=== PATIENT | female | born 1950 | race Caucasian/White ===

== ENCOUNTER 2017-05-13 17:21 | Inpatient (IN) | payer OTHER ==
[~2017-05-13] VITALS: Ht 157.5 cm; Wt 50.8 kg
[~2017-05-13 17:21] MED LIST: ALBU3IS INH; ALBU90OI INH; ALBU90OI61 INH; ALPR.5; ALPR.5 PO; ALPR1 PO; AMOCLA875 PO; ARIP10 PO; ASCO500 PO; ASPI325 PO; AZIT500 PO; Abilify2 MG PO; BUDE6HFA INH; BUSP10 PO; CALCA500CH PO; CEPH500 PO; CITA20 PO; CYCL10 PO; Calcium 500 MG1 EACH PO; Cefpodoxime Pr200 MG PO; DELTASONE20 MG PO; DOXY100 PO; Duoneb 2.5-0.5 M3 ML IH; ERGO400 PO; ESCI5; FAMO20 PO; FLUSAL2505 INH; GUAI600T33 PO; HYDR1TAB94 PO; LIDO5TP TOP; LORA1 PO; MECL25 PO; MONT10T PO; Mucinex600 MG PO; NICO14TP TOP; NICO21TP TOP; NYST100P TOP; Nicoderm Cq1 EAC1 TD; Norco 5-325 Ta1 EACH PO; OMEP20ER PO; OMEPRAZOLE MAGN20 MG PO; PRED10 PO; PRED20 PO; PROACE100; PROACE100 PO; Prednisone20 MG PO; Prednisone50 MG PO; QUET100 PO; ROBITUSSIN100 MG/5 M PO; RXHYDACE PO; RXPROACE PO; SERT100 PO; TOLT4 PO; TRAM50 PO; TRAZ100 PO; TRAZ150T57 PO; Ultram50 MG PO; Ventolin/Prove6.7 GM INH; Verotin-Gr Cap1 EACH PO; Zithromax250 MG PO
[2017-05-13 18:03] LABS: BASOPHILS ABSOLUTE AUTO 0.02 K/mm3 (0.00-0.23); BASOPHILS PERCENT AUTO 0 % (0-2); Hematocrit 33.5 % (33.0-51.0); LYMPHOCYTES ABSOLUTE AUTO 0.97 K/mm3 (0.84-5.20); LYMPHOCYTES PERCENT AUTO 8 % (21-46); MONOCYTES ABSOLUTE AUTO 0.64 K/mm3 (0.16-1.47); MONOCYTES PERCENT AUTO 5 % (4-13); Mean Corpuscular HGB 27.8 pg (26.0-34.0); Mean Corpuscular HGB Conc 32.8 g/dL (31.5-36.5); Mean Corpuscular Volume 85 fL (80-100); RDW Coefficient Variation 14.6 % (11.7-14.2); Red Blood Cell Count 3.95 M/mm3 (3.80-5.20); White Blood Cell Count 12.49 K/mm3 (4.00-11.30)
[2017-05-13 18:08] LABS: EOSINOPHILS ABSOLUTE AUTO 0.01 K/mm3 (0.00-0.68); EOSINOPHILS PERCENT AUTO 0 % (0-6); IMMATURE GRAN ABSOLUTE AUTO 0.07 K/mm3 (0.00-0.10); IMMATURE GRAN PERCENT AUTO 1 % (0-1); Mean Platelet Volume 9.2 fL (9.1-12.4); NEUTROPHILS ABSOLUTE AUTO 10.78 K/mm3 (1.96-9.15); NEUTROPHILS PERCENT AUTO 86 % (41-73); Platelet Count 230 K/mm3 (150-400)
[2017-05-13 18:37] LABS: Alanine Aminotransfer (ALT/SGP 15 U/L (12-78); Albumin, Blood 3.3 g/dL (3.4-5.0); Albumin/Globulin Ratio 1.2 (0.8-1.8); Alk Phos 70 U/L (50-136); Anion Gap 9 mmol/L (6-16); Aspartate Aminotrans (AST/SGOT 23 U/L (12-37); Bilirubin, Total 0.6 mg/dL (0.1-1.0); Blood Urea Nitrogen 17 mg/dL (8-24); Bun/Creatinine Ratio 26.5 (12.0-20.0); CO2, Blood 24 mmol/L (21-32); Calcium, Blood 8.1 mg/dL (8.5-10.1); Chloride, Blood 102 mmol/L (98-108); Creatinine, Blood 0.64 mg/dL (0.40-1.00); Globulin, Blood 2.8 g/dL (2.2-4.0); Glomerular Filtration Rate >60 (60-); Glucose, Blood 113 mg/dL (70-99); Potassium, Blood 3.8 mmol/L (3.5-5.5); Sodium, Blood 135 mmol/L (136-145); Total Protein, Blood 6.1 g/dL (6.4-8.2); Troponin I <0.015 ng/mL (0.000-0.040)
[2017-05-13 18:42] LABS: PCO2 Arterial 36.6 mmHg (35-45); PO2 Arterial 60.6 mmHg (80-100); pH Blood Arterial 7.43 (7.35-7.45)
[2017-05-14 01:02] LABS: Influenza A Negative (NEGATIVE); Influenza B Negative (NEGATIVE)
[2017-05-14 04:53] LABS: Hemoglobin 10.1 g/dL (11.5-16.0); Mean Corpuscular HGB 27.7 pg (26.0-34.0); Mean Corpuscular HGB Conc 32.6 g/dL (31.5-36.5); Mean Corpuscular Volume 85 fL (80-100); Mean Platelet Volume 9.3 fL (9.1-12.4); Platelet Count 261 K/mm3 (150-400); RDW Coefficient Variation 14.9 % (11.7-14.2); RDW Standard Deviation 45.7 fL (35.1-46.3); Red Blood Cell Count 3.65 M/mm3 (3.80-5.20); White Blood Cell Count 11.41 K/mm3 (4.00-11.30)
[2017-05-14 05:15] LABS: Alanine Aminotransfer (ALT/SGP 14 U/L (12-78); Albumin/Globulin Ratio 0.9 (0.8-1.8); Alk Phos 61 U/L (50-136); Anion Gap 10 mmol/L (6-16); Aspartate Aminotrans (AST/SGOT 17 U/L (12-37); Bilirubin, Total 0.5 mg/dL (0.1-1.0); Blood Urea Nitrogen 20 mg/dL (8-24); Bun/Creatinine Ratio 31.4 (12.0-20.0); CO2, Blood 23 mmol/L (21-32); Calcium, Blood 8.5 mg/dL (8.5-10.1); Chloride, Blood 105 mmol/L (98-108); Creatinine, Blood 0.64 mg/dL (0.40-1.00); Globulin, Blood 3.3 g/dL (2.2-4.0); Glomerular Filtration Rate >60 (60-); Glucose, Blood 143 mg/dL (70-99); Potassium, Blood 3.6 mmol/L (3.5-5.5); Sodium, Blood 138 mmol/L (136-145); Total Protein, Blood 6.3 g/dL (6.4-8.2)
[2017-05-14 05:23] LABS: BAND PERCENT MAN 26 % (0-8); BASOPHILS PERCENT MAN 0 % (0-2); EOSINOPHILS PERCENT MAN 0 % (0-6); LYMPHOCYTES ABSOLUTE MAN 0.22 K/mm3 (0.84-5.20); LYMPHOCYTES PERCENT MAN 2 % (21-46); MONOCYTES PERCENT MAN 0 % (4-13); NEUTROPHILS ABSOLUTE MAN 11.18 K/mm3 (1.96-9.15); SEG NEUTROPHILS PERCENT MAN 72 % (41-73); TOTAL CELLS COUNTED 100
[2017-05-14 17:41] LABS: Anion Gap 10 mmol/L (6-16); Blood Urea Nitrogen 20 mg/dL (8-24); Bun/Creatinine Ratio 30.3 (12.0-20.0); CO2, Blood 22 mmol/L (21-32); Calcium, Blood 8.6 mg/dL (8.5-10.1); Chloride, Blood 101 mmol/L (98-108); Creatinine, Blood 0.66 mg/dL (0.40-1.00); Glomerular Filtration Rate >60 (60-); Glucose, Blood 204 mg/dL (70-99); Sodium, Blood 133 mmol/L (136-145)
[2017-05-15 05:30] LABS: Hematocrit 29.6 % (33.0-51.0); Hemoglobin 9.7 g/dL (11.5-16.0); Mean Corpuscular HGB Conc 32.8 g/dL (31.5-36.5); Mean Corpuscular Volume 86 fL (80-100); Mean Platelet Volume 9.4 fL (9.1-12.4); Platelet Count 267 K/mm3 (150-400); RDW Coefficient Variation 15.3 % (11.7-14.2); RDW Standard Deviation 47.4 fL (35.1-46.3); Red Blood Cell Count 3.46 M/mm3 (3.80-5.20); White Blood Cell Count 11.22 K/mm3 (4.00-11.30)
[2017-05-15 06:02] LABS: BAND PERCENT MAN 8 % (0-8); BASOPHILS PERCENT MAN 0 % (0-2); EOSINOPHILS PERCENT MAN 0 % (0-6); LYMPHOCYTES ABSOLUTE MAN 0.44 K/mm3 (0.84-5.20); LYMPHOCYTES PERCENT MAN 4 % (21-46); MONOCYTES ABSOLUTE MAN 0.22 K/mm3 (0.16-1.47); MONOCYTES PERCENT MAN 2 % (4-13); NEUTROPHILS ABSOLUTE MAN 10.54 K/mm3 (1.96-9.15); SEG NEUTROPHILS PERCENT MAN 86 % (41-73); TOTAL CELLS COUNTED 100
[2017-05-15 17:08] LABS: Anion Gap 10 mmol/L (6-16); Blood Urea Nitrogen 19 mg/dL (8-24); CO2, Blood 22 mmol/L (21-32); Calcium, Blood 8.7 mg/dL (8.5-10.1); Chloride, Blood 102 mmol/L (98-108); Creatinine, Blood 0.51 mg/dL (0.40-1.00); Glomerular Filtration Rate >60 (60-); Glucose, Blood 107 mg/dL (70-99); Potassium, Blood 4.2 mmol/L (3.5-5.5); Sodium, Blood 134 mmol/L (136-145)
[2017-05-16 05:30] LABS: BASOPHILS ABSOLUTE AUTO 0.01 K/mm3 (0.00-0.23); BASOPHILS PERCENT AUTO 0 % (0-2); EOSINOPHILS PERCENT AUTO 0 % (0-6); Hematocrit 32.3 % (33.0-51.0); Hemoglobin 10.4 g/dL (11.5-16.0); IMMATURE GRAN ABSOLUTE AUTO 0.14 K/mm3 (0.00-0.10); IMMATURE GRAN PERCENT AUTO 1 % (0-1); LYMPHOCYTES ABSOLUTE AUTO 0.64 K/mm3 (0.84-5.20); LYMPHOCYTES PERCENT AUTO 6 % (21-46); MONOCYTES ABSOLUTE AUTO 0.16 K/mm3 (0.16-1.47); MONOCYTES PERCENT AUTO 2 % (4-13); Mean Corpuscular HGB 28.1 pg (26.0-34.0); Mean Corpuscular HGB Conc 32.2 g/dL (31.5-36.5); Mean Corpuscular Volume 87 fL (80-100); Mean Platelet Volume 9.2 fL (9.1-12.4); NEUTROPHILS PERCENT AUTO 91 % (41-73); Platelet Count 299 K/mm3 (150-400); RDW Coefficient Variation 15.6 % (11.7-14.2); RDW Standard Deviation 49.1 fL (35.1-46.3); White Blood Cell Count 9.95 K/mm3 (4.00-11.30)
[2017-05-16 05:55] LABS: Anion Gap 7 mmol/L (6-16); Blood Urea Nitrogen 18 mg/dL (8-24); Bun/Creatinine Ratio 30.2 (12.0-20.0); CO2, Blood 25 mmol/L (21-32); Calcium, Blood 8.6 mg/dL (8.5-10.1); Chloride, Blood 106 mmol/L (98-108); Glomerular Filtration Rate >60 (60-); Glucose, Blood 128 mg/dL (70-99); Potassium, Blood 4.2 mmol/L (3.5-5.5); Sodium, Blood 138 mmol/L (136-145)
[2017-05-16] MEDS ORDERED: CEPH500 PO (12:54)
[2017-05-16] MEDS ORDERED: [UNRECOGNIZED DRUG - OTHER] (12:58)
[2017-05-16] MEDS ORDERED: ALPR.5 (13:00)
[2017-05-16] MEDS ORDERED: ACET325 (13:05)
[2017-05-16] MEDS ORDERED: MUCINEX FAST-M180 M3 PO (13:11)
[2017-05-16] MEDS ORDERED: DOCU100 PO (13:14)
[2017-05-16] MEDS ORDERED: Bisac-Evac10 MG (13:14)
[2017-05-16] MEDS ORDERED: LEVO750 PO (13:17)
[2017-05-16] MEDS ORDERED: Norco 5-325 Ta1 EACH (13:20)
[2017-05-16] MEDS ORDERED: PRED20 (13:23)
[2017-05-27] MEDS ORDERED: PRED20 PO (11:23)
[2017-08-19] MEDS ORDERED: Percocet 5-3251 EACH PO (20:39)
[2017-08-19] MEDS ORDERED: LEVO750 PO (20:39)
[2017-11-08] MEDS ORDERED: Prednisone20 MG PO (16:46)
[2017-11-08] MEDS ORDERED: Zithromax250 MG PO (16:46)
[2017-11-08] MEDS ORDERED: KETO10 PO (16:46)
== END 2017-05-16 14:36 | disposition home or self-care (01) | DRG 189 ==
LOC: ER 17:21 → MEDS 19:41
PROVIDERS: Emergency Medicine; Family Medicine; Internal Medicine
DX: J96.21 Acute and chronic respiratory failure with hypoxia (principal); J18.9 Pneumonia, unspecified organism; E87.1 Hypo-osmolality and hyponatremia; J44.0 Chronic obstructive pulmonary disease with (acute) lower respiratory infection; J44.1 Chronic obstructive pulmonary disease with (acute) exacerbation; F41.1 Generalized anxiety disorder; E87.6 Hypokalemia; F17.210 Nicotine dependence, cigarettes, uncomplicated; Z88.5 Allergy status to narcotic agent
CPT/HCPCS: 36415; 36600; 71045; 71046; 80048; 80053; 82803; 83605; 84484; 85025; 87040; 87804; 93005; 93010; 94640; 94644; 94667; 94760; 96365; 96375; 99285; J0696; J1650; J1885; J1956; J2543; J2930; J3010

== ENCOUNTER 2017-05-23 19:53 | Inpatient (IN) | payer OTHER ==
[~2017-05-23] VITALS: Ht 167.6 cm; Wt 50.1 kg
[~2017-05-23 19:53] MED LIST changes: +ACET325; +Bisac-Evac10 MG; +DOCU100 PO; +LEVO750 PO; +MUCINEX FAST-M180 M3 PO; +Norco 5-325 Ta1 EACH; +PRED20; +[UNRECOGNIZED DRUG - OTHER]
[2017-05-23 20:20] LABS: BASOPHILS ABSOLUTE AUTO 0.02 K/mm3 (0.00-0.23); BASOPHILS PERCENT AUTO 0 % (0-2); EOSINOPHILS PERCENT AUTO 3 % (0-6); Hematocrit 32.4 % (33.0-51.0); Hemoglobin 10.1 g/dL (11.5-16.0); IMMATURE GRAN ABSOLUTE AUTO 0.11 K/mm3 (0.00-0.10); IMMATURE GRAN PERCENT AUTO 2 % (0-1); LYMPHOCYTES ABSOLUTE AUTO 1.95 K/mm3 (0.84-5.20); LYMPHOCYTES PERCENT AUTO 28 % (21-46); MONOCYTES ABSOLUTE AUTO 0.64 K/mm3 (0.16-1.47); MONOCYTES PERCENT AUTO 9 % (4-13); Mean Corpuscular HGB 27.3 pg (26.0-34.0); Mean Corpuscular HGB Conc 31.2 g/dL (31.5-36.5); Mean Corpuscular Volume 88 fL (80-100); Mean Platelet Volume 8.8 fL (9.1-12.4); NEUTROPHILS ABSOLUTE AUTO 4.18 K/mm3 (1.96-9.15); NEUTROPHILS PERCENT AUTO 59 % (41-73); Platelet Count 318 K/mm3 (150-400); RDW Coefficient Variation 15.2 % (11.7-14.2); RDW Standard Deviation 49.1 fL (35.1-46.3)
[2017-05-23 20:38] LABS: Alanine Aminotransfer (ALT/SGP 15 U/L (12-78); Albumin, Blood 2.7 g/dL (3.4-5.0); Albumin/Globulin Ratio 0.9 (0.8-1.8); Alk Phos 76 U/L (50-136); Anion Gap 6 mmol/L (6-16); Aspartate Aminotrans (AST/SGOT 15 U/L (12-37); Bilirubin, Total 0.1 mg/dL (0.1-1.0); Blood Urea Nitrogen 16 mg/dL (8-24); Bun/Creatinine Ratio 21.9 (12.0-20.0); CO2, Blood 31 mmol/L (21-32); Chloride, Blood 105 mmol/L (98-108); Creatinine, Blood 0.73 mg/dL (0.40-1.00); Globulin, Blood 2.9 g/dL (2.2-4.0); Glomerular Filtration Rate >60 (60-); Glucose, Blood 113 mg/dL (70-99); Potassium, Blood 3.7 mmol/L (3.5-5.5); Sodium, Blood 142 mmol/L (136-145); Total Protein, Blood 5.6 g/dL (6.4-8.2); Troponin I <0.015 ng/mL (0.000-0.040)
[2017-05-25 05:04] LABS: Hematocrit 33.2 % (33.0-51.0); Hemoglobin 10.4 g/dL (11.5-16.0); Mean Corpuscular HGB 27.3 pg (26.0-34.0); Mean Corpuscular HGB Conc 31.3 g/dL (31.5-36.5); Mean Corpuscular Volume 87 fL (80-100); Mean Platelet Volume 8.6 fL (9.1-12.4); Platelet Count 336 K/mm3 (150-400); RDW Coefficient Variation 14.9 % (11.7-14.2); RDW Standard Deviation 47.8 fL (35.1-46.3); Red Blood Cell Count 3.81 M/mm3 (3.80-5.20); White Blood Cell Count 16.15 K/mm3 (4.00-11.30)
[2017-05-26 05:26] LABS: Hematocrit 33.9 % (33.0-51.0); Hemoglobin 10.7 g/dL (11.5-16.0); Mean Corpuscular HGB 27.4 pg (26.0-34.0); Mean Corpuscular HGB Conc 31.6 g/dL (31.5-36.5); Mean Corpuscular Volume 87 fL (80-100); Mean Platelet Volume 8.6 fL (9.1-12.4); Platelet Count 354 K/mm3 (150-400); RDW Coefficient Variation 15.2 % (11.7-14.2); RDW Standard Deviation 48.5 fL (35.1-46.3); Red Blood Cell Count 3.91 M/mm3 (3.80-5.20); White Blood Cell Count 12.87 K/mm3 (4.00-11.30)
[2017-05-27] MEDS ORDERED: BUDE.25 NEB (11:22)
[2017-05-27] MEDS ORDERED: AZIT500 PO (11:23)
[2017-05-27] MEDS ORDERED: PRED20 (11:23)
[2017-05-27] MEDS ORDERED: ALBU2.5V5 NEB (11:24)
[2017-05-27] MEDS ORDERED: ALBU3IS INH (11:32)
== END 2017-05-27 15:01 | disposition home or self-care (01) | DRG 191 ==
LOC: ER 19:53 → MEDS 21:33 → ENPENDDIS 05-27 10:00 → MEDS 05-27 15:01
PROVIDERS: Emergency Medicine; Internal Medicine
DX: J44.1 Chronic obstructive pulmonary disease with (acute) exacerbation (principal); J96.11 Chronic respiratory failure with hypoxia; Z99.81 Dependence on supplemental oxygen; F41.9 Anxiety disorder, unspecified; F43.10 Post-traumatic stress disorder, unspecified; K21.9 Gastro-esophageal reflux disease without esophagitis; F17.200 Nicotine dependence, unspecified, uncomplicated; Z88.5 Allergy status to narcotic agent; Z79.52 Long term (current) use of systemic steroids; Z79.899 Other long term (current) drug therapy
CPT/HCPCS: 36415; 71045; 80053; 83880; 84145; 84484; 85025; 85027; 93005; 93010; 94640; 94644; 94760; 94762; 96374; 96375; 99285; J0360; J1650; J2060; J2920; J2930; J7030

== ENCOUNTER 2017-08-21 14:46 | Inpatient (IN) | payer OTHER ==
[~2017-08-21] VITALS: Ht 157.5 cm; Wt 52.2 kg
[~2017-08-21 14:46] MED LIST changes: +ALBU2.5V5 NEB; +BUDE.25 NEB; +Percocet 5-3251 EACH PO
[2017-08-21 16:31] LABS: BASOPHILS ABSOLUTE AUTO 0.03 K/mm3 (0.00-0.23); BASOPHILS PERCENT AUTO 0 % (0-2); EOSINOPHILS PERCENT AUTO 1 % (0-6); Hematocrit 27.8 % (33.0-51.0); Hemoglobin 8.9 g/dL (11.5-16.0); IMMATURE GRAN ABSOLUTE AUTO 0.07 K/mm3 (0.00-0.10); IMMATURE GRAN PERCENT AUTO 1 % (0-1); LYMPHOCYTES ABSOLUTE AUTO 0.58 K/mm3 (0.84-5.20); LYMPHOCYTES PERCENT AUTO 5 % (21-46); MONOCYTES ABSOLUTE AUTO 0.85 K/mm3 (0.16-1.47); MONOCYTES PERCENT AUTO 8 % (4-13); Mean Corpuscular HGB 24.9 pg (26.0-34.0); Mean Corpuscular Volume 78 fL (80-100); Mean Platelet Volume 8.7 fL (9.1-12.4); NEUTROPHILS ABSOLUTE AUTO 9.75 K/mm3 (1.96-9.15); NEUTROPHILS PERCENT AUTO 86 % (41-73); Platelet Count 259 K/mm3 (150-400); RDW Coefficient Variation 15.3 % (11.7-14.2); RDW Standard Deviation 43.6 fL (35.1-46.3); Red Blood Cell Count 3.57 M/mm3 (3.80-5.20); White Blood Cell Count 11.38 K/mm3 (4.00-11.30)
[2017-08-21 16:52] LABS: Alanine Aminotransfer (ALT/SGP 37 U/L (12-78); Albumin, Blood 2.7 g/dL (3.4-5.0); Albumin/Globulin Ratio 0.8 (0.8-1.8); Alk Phos 115 U/L (50-136); Anion Gap 9 mmol/L (6-16); Aspartate Aminotrans (AST/SGOT 48 U/L (12-37); Bilirubin, Total 0.4 mg/dL (0.1-1.0); Blood Urea Nitrogen 9 mg/dL (8-24); Bun/Creatinine Ratio 14.6 (12.0-20.0); CO2, Blood 26 mmol/L (21-32); Calcium, Blood 8.4 mg/dL (8.5-10.1); Chloride, Blood 97 mmol/L (98-108); Creatinine, Blood 0.62 mg/dL (0.40-1.00); Globulin, Blood 3.3 g/dL (2.2-4.0); Glomerular Filtration Rate >60 (60-); Glucose, Blood 97 mg/dL (70-99); Potassium, Blood 3.5 mmol/L (3.5-5.5); Sodium, Blood 132 mmol/L (136-145); Troponin I <0.015 ng/mL (0.000-0.040)
[2017-08-22 04:49] LABS: BASOPHILS ABSOLUTE AUTO 0.01 K/mm3 (0.00-0.23); BASOPHILS PERCENT AUTO 0 % (0-2); EOSINOPHILS PERCENT AUTO 0 % (0-6); Hematocrit 30.1 % (33.0-51.0); Hemoglobin 9.6 g/dL (11.5-16.0); IMMATURE GRAN ABSOLUTE AUTO 0.03 K/mm3 (0.00-0.10); IMMATURE GRAN PERCENT AUTO 1 % (0-1); LYMPHOCYTES ABSOLUTE AUTO 0.43 K/mm3 (0.84-5.20); LYMPHOCYTES PERCENT AUTO 7 % (21-46); MONOCYTES ABSOLUTE AUTO 0.07 K/mm3 (0.16-1.47); MONOCYTES PERCENT AUTO 1 % (4-13); Mean Corpuscular HGB 24.8 pg (26.0-34.0); Mean Corpuscular HGB Conc 31.9 g/dL (31.5-36.5); Mean Corpuscular Volume 78 fL (80-100); Mean Platelet Volume 9.2 fL (9.1-12.4); NEUTROPHILS ABSOLUTE AUTO 5.41 K/mm3 (1.96-9.15); NEUTROPHILS PERCENT AUTO 91 % (41-73); Platelet Count 306 K/mm3 (150-400); RDW Coefficient Variation 15.6 % (11.7-14.2); RDW Standard Deviation 43.7 fL (35.1-46.3); Red Blood Cell Count 3.87 M/mm3 (3.80-5.20); White Blood Cell Count 5.95 K/mm3 (4.00-11.30)
[2017-08-22 05:08] LABS: Anion Gap 8 mmol/L (6-16); Blood Urea Nitrogen 11 mg/dL (8-24); Bun/Creatinine Ratio 20.5 (12.0-20.0); CO2, Blood 26 mmol/L (21-32); Calcium, Blood 8.5 mg/dL (8.5-10.1); Chloride, Blood 103 mmol/L (98-108); Creatinine, Blood 0.54 mg/dL (0.40-1.00); Glomerular Filtration Rate >60 (60-); Glucose, Blood 157 mg/dL (70-99); Potassium, Blood 3.9 mmol/L (3.5-5.5); Sodium, Blood 137 mmol/L (136-145)
[2017-08-23 05:20] LABS: BASOPHILS ABSOLUTE AUTO 0.01 K/mm3 (0.00-0.23); BASOPHILS PERCENT AUTO 0 % (0-2); EOSINOPHILS PERCENT AUTO 0 % (0-6); Hematocrit 29.9 % (33.0-51.0); Hemoglobin 9.3 g/dL (11.5-16.0); IMMATURE GRAN ABSOLUTE AUTO 0.06 K/mm3 (0.00-0.10); IMMATURE GRAN PERCENT AUTO 1 % (0-1); LYMPHOCYTES ABSOLUTE AUTO 0.62 K/mm3 (0.84-5.20); LYMPHOCYTES PERCENT AUTO 7 % (21-46); MONOCYTES ABSOLUTE AUTO 0.29 K/mm3 (0.16-1.47); MONOCYTES PERCENT AUTO 3 % (4-13); Mean Corpuscular HGB 24.2 pg (26.0-34.0); Mean Corpuscular HGB Conc 31.1 g/dL (31.5-36.5); Mean Corpuscular Volume 78 fL (80-100); Mean Platelet Volume 9.4 fL (9.1-12.4); NEUTROPHILS ABSOLUTE AUTO 7.83 K/mm3 (1.96-9.15); NEUTROPHILS PERCENT AUTO 89 % (41-73); Platelet Count 301 K/mm3 (150-400); RDW Coefficient Variation 15.8 % (11.7-14.2); RDW Standard Deviation 44.2 fL (35.1-46.3); Red Blood Cell Count 3.84 M/mm3 (3.80-5.20); White Blood Cell Count 8.81 K/mm3 (4.00-11.30)
[2017-08-23 05:58] LABS: Anion Gap 9 mmol/L (6-16); Blood Urea Nitrogen 14 mg/dL (8-24); Bun/Creatinine Ratio 27.1 (12.0-20.0); CO2, Blood 25 mmol/L (21-32); Calcium, Blood 8.9 mg/dL (8.5-10.1); Chloride, Blood 103 mmol/L (98-108); Creatinine, Blood 0.52 mg/dL (0.40-1.00); Glomerular Filtration Rate >60 (60-); Glucose, Blood 143 mg/dL (70-99); Potassium, Blood 3.8 mmol/L (3.5-5.5); Sodium, Blood 137 mmol/L (136-145)
[2017-08-23 07:26] LABS: Base Excess Venous 2.6 mmol/L; Bicarbonate Venous 26.4 mmol/L (24.0-30.0); PCO2 Venous 42.4 mmHg (38-42); PO2 Venous 70.8 mmHg (38-42); pH Blood Venous 7.41 (7.34-7.37)
[2017-08-23 13:19] LABS: Percent Saturation 7.7 % (15.0-50.0)
[2017-08-23 20:30] LABS: Vancomycin, Trough 6.8 ug/mL (5.0-10.0)
[2017-08-24 13:58] LABS: Vancomycin, Trough 16.3 ug/mL (5.0-10.0)
[2017-08-26 04:51] LABS: BASOPHILS ABSOLUTE AUTO 0.01 K/mm3 (0.00-0.23); BASOPHILS PERCENT AUTO 0 % (0-2); EOSINOPHILS ABSOLUTE AUTO 0.06 K/mm3 (0.00-0.68); EOSINOPHILS PERCENT AUTO 1 % (0-6); Hematocrit 29.3 % (33.0-51.0); Hemoglobin 9.2 g/dL (11.5-16.0); IMMATURE GRAN ABSOLUTE AUTO 0.11 K/mm3 (0.00-0.10); IMMATURE GRAN PERCENT AUTO 1 % (0-1); LYMPHOCYTES ABSOLUTE AUTO 1.77 K/mm3 (0.84-5.20); LYMPHOCYTES PERCENT AUTO 18 % (21-46); MONOCYTES ABSOLUTE AUTO 0.71 K/mm3 (0.16-1.47); MONOCYTES PERCENT AUTO 7 % (4-13); Mean Corpuscular HGB 24.2 pg (26.0-34.0); Mean Corpuscular HGB Conc 31.4 g/dL (31.5-36.5); Mean Corpuscular Volume 77 fL (80-100); Mean Platelet Volume 9.1 fL (9.1-12.4); NEUTROPHILS ABSOLUTE AUTO 7.31 K/mm3 (1.96-9.15); NEUTROPHILS PERCENT AUTO 73 % (41-73); Platelet Count 360 K/mm3 (150-400); RDW Coefficient Variation 15.6 % (11.7-14.2); RDW Standard Deviation 43.3 fL (35.1-46.3); White Blood Cell Count 9.97 K/mm3 (4.00-11.30)
[2017-08-26 05:23] LABS: Albumin, Blood 2.4 g/dL (3.4-5.0); Anion Gap 10 mmol/L (6-16); Blood Urea Nitrogen 16 mg/dL (8-24); Bun/Creatinine Ratio 28.5 (12.0-20.0); CO2, Blood 26 mmol/L (21-32); Calcium, Blood 8.1 mg/dL (8.5-10.1); Chloride, Blood 102 mmol/L (98-108); Creatinine, Blood 0.56 mg/dL (0.40-1.00); Glomerular Filtration Rate >60 (60-); Glucose, Blood 108 mg/dL (70-99); Phosphorus, Blood 3.9 mg/dL (2.5-4.9); Potassium, Blood 3.5 mmol/L (3.5-5.5); Sodium, Blood 138 mmol/L (136-145)
[2017-08-26] MEDS ORDERED: NICO21TP TOP (11:11)
[2017-08-26] MEDS ORDERED: GUAI600T33 PO (11:12)
[2017-08-26] MEDS ORDERED: BUSP10 PO (11:12)
[2017-08-26] MEDS ORDERED: TRAM50 PO (11:13)
[2017-08-26] MEDS ORDERED: AMLO5 PO (11:13)
[2017-08-26] MEDS ORDERED: Micro-K10 MEQ PO (11:13)
== END 2017-08-26 11:52 | disposition home or self-care (01) | DRG 193 ==
LOC: ER 14:46 → MEDS 16:28 → ENPENDDIS 08-26 11:47 → MEDS 08-26 11:52
PROVIDERS: Emergency Medicine; Family Medicine; Internal Medicine; Pharmacist
DX: J18.9 Pneumonia, unspecified organism (principal); J96.01 Acute respiratory failure with hypoxia; E44.0 Moderate protein-calorie malnutrition; R64 Cachexia; J43.9 Emphysema, unspecified; D64.9 Anemia, unspecified; F43.10 Post-traumatic stress disorder, unspecified; F41.9 Anxiety disorder, unspecified; F17.210 Nicotine dependence, cigarettes, uncomplicated; Z68.21 Body mass index [BMI] 21.0-21.9, adult; Z86.14 Personal history of Methicillin resistant Staphylococcus aureus infection; Z99.81 Dependence on supplemental oxygen
CPT/HCPCS: 36415; 71045; 71046; 80048; 80053; 80069; 80202; 82728; 82803; 83540; 83550; 83880; 84145; 84484; 85025; 85379; 92610; 93005; 93010; 94640; 94664; 94667; 94760; 96374; 96376; 98960; 99284; 99285; 99407; G8996; G8997; G8998; J1650; J1956; J2930; J3010; J3370

== ENCOUNTER 2017-10-24 05:45 | Emergency (ER) | payer OTHER ==
[~2017-10-24] VITALS: Ht 157.5 cm; Wt 47.2 kg
[~2017-10-24 05:45] MED LIST changes: +AMLO5 PO; +Micro-K10 MEQ PO
== END 2017-10-24 09:11 | disposition home or self-care (01) ==
LOC: ER 05:45
DX: S22.42XA Multiple fractures of ribs, left side, initial encounter for closed fracture (principal); F41.9 Anxiety disorder, unspecified; I10 Essential (primary) hypertension; F17.210 Nicotine dependence, cigarettes, uncomplicated; Z88.5 Allergy status to narcotic agent; Z79.899 Other long term (current) drug therapy; Z79.51 Long term (current) use of inhaled steroids; W18.30XA Fall on same level, unspecified, initial encounter
CPT/HCPCS: 71101; 99283-25

== ENCOUNTER 2018-04-25 14:01 | Emergency (ER) | payer OTHER ==
[~2018-04-25] VITALS: Ht 157.5 cm; Wt 46.3 kg
[~2018-04-25 14:01] MED LIST changes: +KETO10 PO
[2018-04-25 14:53] LABS: BASOPHILS ABSOLUTE AUTO 0.04 K/mm3 (0.00-0.23); BASOPHILS PERCENT AUTO 1 % (0-2); Hematocrit 34.5 % (33.0-51.0); Hemoglobin 11.3 g/dL (11.5-16.0); LYMPHOCYTES ABSOLUTE AUTO 0.71 K/mm3 (0.84-5.20); LYMPHOCYTES PERCENT AUTO 10 % (21-46); MONOCYTES ABSOLUTE AUTO 0.49 K/mm3 (0.16-1.47); MONOCYTES PERCENT AUTO 7 % (4-13); Mean Corpuscular HGB 28.6 pg (26.0-34.0); Mean Corpuscular HGB Conc 32.8 g/dL (31.5-36.5); Mean Corpuscular Volume 87 fL (80-100); Mean Platelet Volume 9.4 fL (9.1-12.4); Platelet Count 243 K/mm3 (150-400); RDW Coefficient Variation 13.9 % (11.7-14.2); RDW Standard Deviation 44.4 fL (35.1-46.3); Red Blood Cell Count 3.95 M/mm3 (3.80-5.20); White Blood Cell Count 6.95 K/mm3 (4.00-11.30)
[2018-04-25 15:09] LABS: EOSINOPHILS ABSOLUTE AUTO 0.09 K/mm3 (0.00-0.68); EOSINOPHILS PERCENT AUTO 1 % (0-6); IMMATURE GRAN ABSOLUTE AUTO 0.05 K/mm3 (0.00-0.10); IMMATURE GRAN PERCENT AUTO 1 % (0-1); NEUTROPHILS ABSOLUTE AUTO 5.57 K/mm3 (1.96-9.15); NEUTROPHILS PERCENT AUTO 80 % (41-73)
[2018-04-25 15:21] LABS: Alanine Aminotransfer (ALT/SGP 15 U/L (12-78); Albumin, Blood 2.9 g/dL (3.4-5.0); Albumin/Globulin Ratio 0.8 (0.8-1.8); Alk Phos 119 U/L (50-136); Anion Gap 8 mmol/L (6-16); Aspartate Aminotrans (AST/SGOT 13 U/L (12-37); Bilirubin, Total 0.5 mg/dL (0.1-1.0); Blood Urea Nitrogen 6 mg/dL (8-24); Bun/Creatinine Ratio 12.2 (12.0-20.0); CO2, Blood 30 mmol/L (21-32); Calcium, Blood 8.6 mg/dL (8.5-10.1); Chloride, Blood 98 mmol/L (98-108); Creatinine, Blood 0.49 mg/dL (0.40-1.00); Globulin, Blood 3.6 g/dL (2.2-4.0); Glomerular Filtration Rate >60 (60-); Glucose, Blood 144 mg/dL (70-99); Potassium, Blood 4.1 mmol/L (3.5-5.5); Sodium, Blood 136 mmol/L (136-145); Total Protein, Blood 6.5 g/dL (6.4-8.2); Troponin I <0.015 ng/mL (0.000-0.040)
[2018-04-25] MEDS ORDERED: Zithromax250 MG PO (16:23)
== END 2018-04-25 17:59 | disposition home or self-care (01) ==
LOC: ER 14:01
PROVIDERS: Physician Assistant
DX: J44.1 Chronic obstructive pulmonary disease with (acute) exacerbation (principal); J96.00 Acute respiratory failure, unspecified whether with hypoxia or hypercapnia; F41.9 Anxiety disorder, unspecified; F43.10 Post-traumatic stress disorder, unspecified; F17.210 Nicotine dependence, cigarettes, uncomplicated; Z88.5 Allergy status to narcotic agent; Z88.8 Allergy status to other drugs, medicaments and biological substances; Z79.899 Other long term (current) drug therapy
CPT/HCPCS: 36415; 71046; 80053; 83880; 84484; 85025; 93005; 93010

== ENCOUNTER 2020-02-14 10:47 | Emergency (ER) | payer OTHER ==
[~2020-02-14] VITALS: Ht 157.5 cm; Wt 40.8 kg
== END 2020-02-14 12:04 | disposition home or self-care (01) ==
LOC: ER 10:47
DX: T18.108A Unspecified foreign body in esophagus causing other injury, initial encounter (principal); J43.9 Emphysema, unspecified; F41.9 Anxiety disorder, unspecified; I10 Essential (primary) hypertension; F43.10 Post-traumatic stress disorder, unspecified; F17.210 Nicotine dependence, cigarettes, uncomplicated; Z79.51 Long term (current) use of inhaled steroids; Z79.899 Other long term (current) drug therapy; Z88.8 Allergy status to other drugs, medicaments and biological substances; Z88.5 Allergy status to narcotic agent
CPT/HCPCS: 70360; 99283-25

== ENCOUNTER 2020-03-08 16:10 | Inpatient (IN) | payer OTHER ==
[~2020-03-08] VITALS: Ht 157.5 cm; Wt 39.7 kg
[2020-03-08] MEDS ORDERED: DIAZ5 PO (16:24)
[2020-03-08] MEDS ORDERED: TOLTERODINE TART4 MG PO ×2 (16:25→18:52)
[2020-03-08] MEDS ORDERED: CITA20 PO (16:26)
[2020-03-08] MEDS ORDERED: ERGO50000 PO (16:27)
[2020-03-08 17:17] LABS: BASOPHILS ABSOLUTE AUTO 0.04 K/mm3 (0.00-0.23); BASOPHILS PERCENT AUTO 0 % (0-2); EOSINOPHILS ABSOLUTE AUTO 0.22 K/mm3 (0.00-0.68); EOSINOPHILS PERCENT AUTO 2 % (0-6); Hematocrit 39.2 % (33.0-51.0); Hemoglobin 12.5 g/dL (11.5-16.0); IMMATURE GRAN ABSOLUTE AUTO 0.04 K/mm3 (0.00-0.10); IMMATURE GRAN PERCENT AUTO 0 % (0-1); LYMPHOCYTES ABSOLUTE AUTO 1.51 K/mm3 (0.84-5.20); LYMPHOCYTES PERCENT AUTO 16 % (21-46); MONOCYTES ABSOLUTE AUTO 0.91 K/mm3 (0.16-1.47); MONOCYTES PERCENT AUTO 9 % (4-13); Mean Corpuscular HGB 29.3 pg (26.0-34.0); Mean Corpuscular HGB Conc 31.9 g/dL (31.5-36.5); Mean Corpuscular Volume 92 fL (80-100); Mean Platelet Volume 8.8 fL (9.1-12.4); NEUTROPHILS ABSOLUTE AUTO 6.92 K/mm3 (1.96-9.15); NEUTROPHILS PERCENT AUTO 72 % (41-73); Platelet Count 442 K/mm3 (150-400); RDW Coefficient Variation 13.9 % (11.7-14.2); RDW Standard Deviation 46.6 fL (35.1-46.3); Red Blood Cell Count 4.27 M/mm3 (3.80-5.20); White Blood Cell Count 9.64 K/mm3 (4.00-11.30)
[2020-03-08 17:40] LABS: Alanine Aminotransfer (ALT/SGP 45 U/L (12-78); Albumin, Blood 3.1 g/dL (3.4-5.0); Albumin/Globulin Ratio 0.8 (0.8-1.8); Alk Phos 133 U/L (50-136); Anion Gap 8 mmol/L (6-16); Aspartate Aminotrans (AST/SGOT 32 U/L (12-37); Bilirubin, Total 0.3 mg/dL (0.1-1.0); Blood Urea Nitrogen 28 mg/dL (8-24); Bun/Creatinine Ratio 50.5 (12.0-20.0); CO2, Blood 29 mmol/L (21-32); Calcium, Blood 9.4 mg/dL (8.5-10.1); Chloride, Blood 95 mmol/L (98-108); Creatinine, Blood 0.55 mg/dL (0.40-1.00); Globulin, Blood 3.9 g/dL (2.2-4.0); Glomerular Filtration Rate >60 (60-); Glucose, Blood 80 mg/dL (70-99); Potassium, Blood 4.6 mmol/L (3.5-5.5); Sodium, Blood 132 mmol/L (136-145)
[2020-03-08] MEDS ORDERED: BUSPIRONE HCL30 MG PO (18:46)
[2020-03-08] MEDS ORDERED: KLOR-CON 1010 MEQ PO (18:46)
[2020-03-08] MEDS ORDERED: OMEP20ER PO (18:47)
[2020-03-08] MEDS ORDERED: MONT10T PO (18:47)
[2020-03-08] MEDS ORDERED: TRAZ100 PO (18:47)
[2020-03-08] MEDS ORDERED: PULMICORT0.5 MG/21 INH (18:47)
[2020-03-08] MEDS ORDERED: CITALOPRAM HBR20 MG PO (18:48)
[2020-03-08 20:43] LABS: U Amphetamine Screen DETECTED; U Benzodiazapine Screen DETECTED; U Cannabinoids Screen DETECTED; U Methamphetamine Screen DETECTED; U Opiates Screen DETECTED
[2020-03-08 20:44] LABS: U Barbituate Screen Not Detected; U Buprenorphine Screen Not Detected; U Cocaine Screen Not Detected; U Methadone Screen Not Detected; U Oxycodone Screen Not Detected; U Phencyclidine Screen Not Detected; U Propoxyphene Screen Not Detected
--- NOTE | 2020-03-08 22:50 | NUR ---
ADMIT NOTE: PATIENT A/OX3. STATES SHE WENT TO HER DOCTOR TODAY BECAUSE HER RIBS WERE HURTING AFTER A FALL SHE HAD THE DAY BEFORE YESTERDAY. STATES THAT THEY SAID HER OXYGEN LEVELS WERE "WAY TOO LOW" AND CALLED EMS. REPORTS HEADACHE PAIN RATED 8/10, REPORTS CHRONIC DELUCA AT HOME. REPORTS PAIN TO L SIDE RATED 6/10, STATES PAIN STARTED AFTER HER FALL. ICE PACK APPLIED TO LEFT SIDE. ON 3L O2 VIA NC WHICH SHE STATES IS WHAT SHE WEARS AT HOME. FREQUENT HACKING COUGH, NONPRODUCTIVE, STATES THIS IS NORMAL FOR HER. SINUS TACH ON TELE IN THE LOW 100'S. MAKES JERKING MOVEMENTS AND OPENS EYES WIDE FREQUENTLY AND SEEMINGLY UNCONTROLLABLY. DENIES USE OF SUBSTANCES EXCEPT MARIJUANA, STATES LAST USE WAS APPROX 5-6 DAYS AGO. REPORTS RECENT WEIGHT LOSS OF 40 POUNDS OVER LAST FEW MONTHS, STATES THAT HER APPETITE HAS NOT DECREASED BUT HAS INCREASED. STATES THAT SHE LIVES WITH HER SON SHAYY. TRANSFERRED FROM ED [facility] TO BED WITH SBA. VOIDED IN BSC. HOME MED REC COMPLETED. CALL LIGHT IN REACH. BED ALARM ON.
--- NOTE | 2020-03-08 23:40 | NUR ---
CALLED JOSUÉ AT 2330. PATIENT REQUESTING TRAZADONE AND VALIUM OR XANAX. STATES SHE USED TO TAKE XANAX BUT THAT HER PROVIDER SWITCHED HER TO VALIUM AND "IT DOESN'T WORK WELL." MED REC COMPLETED. PATIENT DENIES SUBSTANCE USE EXCEPT FOR MARIJUANA, STATES LAST USE OF THAT WAS 5-6 DAYS AGO. JOSUÉ STATES SHE WILL REVIEW AND PUT IN ORDERS.
--- NOTE | 2020-03-09 01:15 | NUR ---
BELONGINGS: PATIENT HAS COAT, SWEATSHIRT, SHIRT, TSHIRT, TWO PAIRS OF PANTS, AND TWO SOCKS WITH HER. WEARING A COPPER BRACELET. HAS OXYGEN CONCENTRATOR AND PURSE WITH WALLET. ENCOURAGED PATIENT TO SEND VALUABLES HOME. LAWN AND TREE SERVICE SPRAY SUPERVISOR, INHALER, AND VAPE PEN LOCKED IN PATIENT DRAWER. NOTE PLACED ON CHART TO REMIND STAFF THAT BELONGINGS ARE IN PATIENT DRAWER. VERIFIED BELONGINGS WITH AJ BRANDON RN.
--- NOTE | 2020-03-09 04:05 | NUR ---
PATIENT DIFFICULT TO AROUSE, ONLY RESPONDS TO LIGHT STERNAL RUB AND THEN FALLS ASLEEP QUICKLY. VSS. PATIENT RECEIVED TRAZADONE AND XANAX LATE FOR SLEEP AND ANXIETY. ALSO HAD POSITIVE TOX SCREEN. WILL CONT TO MONITOR CLOSELY.
[2020-03-09 04:16] LABS: BASOPHILS PERCENT AUTO 0 % (0-2); EOSINOPHILS PERCENT AUTO 0 % (0-6); Hematocrit 38.8 % (33.0-51.0); Hemoglobin 12.1 g/dL (11.5-16.0); Mean Corpuscular HGB 27.9 pg (26.0-34.0); Mean Corpuscular HGB Conc 31.2 g/dL (31.5-36.5); Mean Corpuscular Volume 90 fL (80-100); Mean Platelet Volume 8.5 fL (9.1-12.4); Platelet Count 411 K/mm3 (150-400); RDW Coefficient Variation 13.6 % (11.7-14.2); RDW Standard Deviation 44.3 fL (35.1-46.3); Red Blood Cell Count 4.33 M/mm3 (3.80-5.20); White Blood Cell Count 3.06 K/mm3 (4.00-11.30)
[2020-03-09 04:17] LABS: IMMATURE GRAN ABSOLUTE AUTO 0.01 K/mm3 (0.00-0.10); IMMATURE GRAN PERCENT AUTO 0 % (0-1); LYMPHOCYTES ABSOLUTE AUTO 0.27 K/mm3 (0.84-5.20); LYMPHOCYTES PERCENT AUTO 9 % (21-46); MONOCYTES ABSOLUTE AUTO 0.03 K/mm3 (0.16-1.47); MONOCYTES PERCENT AUTO 1 % (4-13); NEUTROPHILS ABSOLUTE AUTO 2.75 K/mm3 (1.96-9.15); NEUTROPHILS PERCENT AUTO 90 % (41-73)
[2020-03-09 04:31] LABS: Anion Gap 3 mmol/L (6-16); Blood Urea Nitrogen 23 mg/dL (8-24); Bun/Creatinine Ratio 49.6 (12.0-20.0); CO2, Blood 37 mmol/L (21-32); Calcium, Blood 8.3 mg/dL (8.5-10.1); Chloride, Blood 94 mmol/L (98-108); Creatinine, Blood 0.46 mg/dL (0.40-1.00); Glomerular Filtration Rate >60 (60-); Glucose, Blood 160 mg/dL (70-99); Potassium, Blood 4.1 mmol/L (3.5-5.5); Sodium, Blood 134 mmol/L (136-145)
--- NOTE | 2020-03-09 05:15 | NUR ---
PATIENT REPONDS TO LOUD VERBAL STIMULATION, WILL SAY "WHAT". ABLE TO TELL ME HER NAME AND HER BIRTHDAY AND CAN FOLLOW SOME COMMANDS. STILL FALLS ASLEEP QUICKLY. VITAL SIGNS STABLE. WILL CONT TO MONITOR.
--- NOTE | 2020-03-09 06:23 | NUR ---
SHIFT SUMMARY: NEW ADMISSION THIS SHIFT. WENT TO HER DOCTOR FOR L SIDE PAIN AFTER A FALL AND SHE WAS TRANSFERRED TO [facility] VIA EMS FOR LOW SPO2. A/OX3 UPON ARRIVAL. REPORTED HEADACHE PAIN, NECK PAIN, AND L RIB PAIN WHICH WAS RELIEVED WITH TYLENOL. HAD CRAMPS IN HER BILATERAL LOWER LEGS WHICH WAS RELIEVED BY STANDING AND WITH HEATING PADS APPLIED. STATES CRAMPS ARE CHRONIC FOR HER. ON 3L O2 VIA NC WHICH SHE STATES IS WHAT SHE WEARS AT HOME. VOIDED IN BSC. UP WITH SBA. PATIENT BECAME DIFFICULT TO WAKE AT APPROX 0400, ONLY RESPONDED TO LIGHT STERNAL RUB. SHE WILL WAKE NOW TO VERBAL AND FOLLOW SOME COMMANDS BUT SHE FALLS ASLEEP QUICKLY. TRAZADONE AND XANAX WERE GIVEN FOR SLEEP. ALSO HAD POSITIVE TOX SCREEN FOR MULTIPLE SUBSTANCES. VITAL SIGNS ARE STABLE. WILL CONTINUE TO MONITOR AND REPORT TO ONCOMING RN.
--- NOTE | 2020-03-09 07:30 | NUR ---
ASSUMED CARE: PT RESTING QUIETLY WITH FOREHEAD O2 PROBE IN PLACE SATTING MID 90S ON 3L. TELE SHOWS NSR. NO ACUTE NEEDS OR CONCERNS AT THIS TIME.
--- NOTE | 2020-03-09 09:00 | NUR ---
THELMA DAVIS AND AMY CAME TO SEE PT. AWARE THAT SHE RESPONDS TO MINIMAL STIMULI BUT FALLS BACK TO SLEEP QUICKLY. AWARE THAT ORAL MEDS HAVE BEEN HELD AT THIS TIME. ECHO ORDERED FOR INCREASED TROPS AND BNP. PHYSICAL THERAPY CAME TO EVALUATE PT AND WILL RETURN LATER DUE TO PT'S LETHARGY. PT OPENED EYES AND SAID "BRR THAT'S COLD" WHEN LIDOCAINE PATCH PLACED BUT UNABLE TO STAY AWAKE BEYOND THAT. WILL CONTINUE TO MONITOR NEURO STATUS.
--- NOTE | 2020-03-09 11:52 | NUR ---
PT TAKEN TO CT AT THIS TIME. BACKHOE OPERATOR TO RETURN WHEN PT IS AVAILABLE AGAIN.
--- NOTE | 2020-03-09 13:09 | NUR ---
ECHO AT BEDSIDE AT THIS TIME.
--- NOTE | 2020-03-09 13:27 | NUR ---
Echocardiogram completed.
--- NOTE | 2020-03-09 14:27 | NUR ---
CALL TO DR REYES TO MAKE HER AWARE THAT AUTOMOTIVE SALES PROFESSIONAL STATED ECHO WAS SUSPICIOUS FOR COR PULMONALE AND THOUGHT PT MIGHT HAVE PE. AWAITING RESULT FROM CHEST CT WELL. DR REYES ALSO AWARE THAT PT'S NEURO STATUS IS UNCHANGED WITH GRIMACE TO NAME AND STIMULATION BUT NOT WAKING UP. VSS. WILL AWAIT FURTHER INSTRUCTIONS FROM .
--- NOTE | 2020-03-09 15:53 | NUR ---
PT IS MUCH MORE AWAKE NOW, STILL DROWSY BUT ROUSES EASILY AND TALKS WITH STAFF. ASKED TO USE BSC WITH [address] REYES CAME TO SEE PT AGAIN AND AWARE OF CT RESULT AND AWAITING ECHO RESULT BEFORE FURTHER ORDERS TO BE MADE. AWARE THAT BP MEDS HELD DUE TO HYPOTENSION. NO FURTHER NEEDS AT THIS TIME.
--- NOTE | 2020-03-09 18:49 | NUR ---
SHIFT SUMMARY: PT REMAINS LETHARGIC THIS SHIFT BUT WAS ROUSEABLE ENOUGH TO SPEAK WITH DR REYES THIS AFTERNOON. ABX STARTED AND WAS WAITING FOR ECHO RESULT FOR FURTHER TREATMENT PLANS. FAMILY UPDATED THIS AM. AMBULATORY TO BSC WITH 1 ASSIST. NO FURTHER NEEDS OR CONCERNS AT THIS TIME.
--- NOTE | 2020-03-10 07:24 | NUR ---
ASSUMED CARE: PT RESTING QUIETLY AT THIS TIME, EASILY ROUSABLE. 3L O2 IN PLACE SATTING LOW 90S. NSR ON TELE AT THIS TIME. NO ACUTE NEEDS OR CONCERNS
--- NOTE | 2020-03-10 12:41 | NUR ---
PT'S DAUGHTER ELDER CALLED AND STATED THAT PT HAS BEEN TRYING TO SEE OUTPT TO LOOK AT THYROID LEVELS DUE TO PT LOSING WEIGHT AT HOME. CALL TO DR DAVIS WHO STATES THAT IS A NEED TO BE ADDRESSED BY PCP BECAUSE WITH CURRENT DIAGNOSIS, THYROID LEVELS WOULD BE INACCURATE. NO FURTHER NEEDS AT THIS TIME.
--- NOTE | 2020-03-10 17:30 | NUR ---
CALL TO DR GARZA REGARDING PT'S COMPLAINT OF CHEST AND RIB PAIN WITH COUGHING. DR TO REVIEW PT'S CHART AND TO ADD FURTHER MEDS FOR PT'S COMFORT
--- NOTE | 2020-03-10 18:05 | NUR ---
SHIFT SUMMARY: DISCUSSED WITH PT NEW ORDERS FOR PAIN MANAGEMENT. PT DECLINED MEDS AT THIS TIME AND WISHED FOR SOMETHING TO STOP COUGH. EDUCATED PT THAT STOPPING COUGH WOULD BE DETRIMENTAL FOR PNEUMONIA. PT TO BE DISCHARGED IN NEXT FEW DAYS AND BEING TREATED WITH ABX IN THE MEANTIME. MUCH MORE AWAKE AND ALERT TODAY. NO FURTHER NEEDS OR CONCERNS AT THIS TIME.
--- NOTE | 2020-03-10 19:15 | NUR ---
ASSUMED CARE RECEIVED REPORT. PT SITTING AT SIDE OF BED DRINKING TEA AND WATCHING TV. MILD DYSPNEA NOTED WITH EXERTION, O2@3LPM VIA NC WITH SATS @ 93% WILL CONTINUE TO MONITOR
[2020-03-11 05:15] LABS: BASOPHILS ABSOLUTE AUTO 0.04 K/mm3 (0.00-0.23); BASOPHILS PERCENT AUTO 1 % (0-2); EOSINOPHILS ABSOLUTE AUTO 0.14 K/mm3 (0.00-0.68); EOSINOPHILS PERCENT AUTO 2 % (0-6); Hematocrit 37.7 % (33.0-51.0); Hemoglobin 11.5 g/dL (11.5-16.0); IMMATURE GRAN ABSOLUTE AUTO 0.02 K/mm3 (0.00-0.10); IMMATURE GRAN PERCENT AUTO 0 % (0-1); LYMPHOCYTES ABSOLUTE AUTO 1.46 K/mm3 (0.84-5.20); LYMPHOCYTES PERCENT AUTO 24 % (21-46); MONOCYTES ABSOLUTE AUTO 0.63 K/mm3 (0.16-1.47); MONOCYTES PERCENT AUTO 10 % (4-13); Mean Corpuscular HGB 28.3 pg (26.0-34.0); Mean Corpuscular HGB Conc 30.5 g/dL (31.5-36.5); Mean Corpuscular Volume 93 fL (80-100); Mean Platelet Volume 8.5 fL (9.1-12.4); NEUTROPHILS ABSOLUTE AUTO 3.79 K/mm3 (1.96-9.15); NEUTROPHILS PERCENT AUTO 62 % (41-73); Platelet Count 388 K/mm3 (150-400); RDW Coefficient Variation 13.7 % (11.7-14.2); RDW Standard Deviation 46.9 fL (35.1-46.3); Red Blood Cell Count 4.06 M/mm3 (3.80-5.20); White Blood Cell Count 6.08 K/mm3 (4.00-11.30)
[2020-03-11 05:49] LABS: Anion Gap 1 mmol/L (6-16); Blood Urea Nitrogen 18 mg/dL (8-24); Bun/Creatinine Ratio 42.6 (12.0-20.0); CO2, Blood 39 mmol/L (21-32); Calcium, Blood 8.2 mg/dL (8.5-10.1); Chloride, Blood 99 mmol/L (98-108); Creatinine, Blood 0.42 mg/dL (0.40-1.00); Glomerular Filtration Rate >60 (60-); Glucose, Blood 94 mg/dL (70-99); Potassium, Blood 4.5 mmol/L (3.5-5.5); Sodium, Blood 139 mmol/L (136-145)
--- NOTE | 2020-03-11 06:05 | NUR ---
PT A&Ox3 THROUGH SHIFT WITH MILD EPISODES OF ANXIETY. RESTED COMFORTABLY WITH LITTLE RESP DISTRESS. LUNG SOUNDS REMAIN DECREASED WITH FAINT CRACKLES IN BASES, O2 @3LPM VIA NC, SATS 91-996% AT REST, DESATS INTO 80s WITH EXERTION. PT HAS CONGESTED NON PRODUCTIVE COUGH. TELE SINUS TACH 100-110, DENIED CHEST PAIN. ASSISTED TO BSC, VOIDING YELLOW URINE. WILL CONTINUE TO MONITOR
--- NOTE | 2020-03-11 13:31 | NUR ---
Advance Directive (AD) education/Spiritual Care visit conducted. After receiving a refferal for AD information, I visit patient. Patient is sleeping but easily awakens to the sound of her name. I share with patinet about the importance and purpose of the AD and she states, "Just leave it on the table." I do so. Patient begins falling asleep so I ask patient if a prayer might be helpful. Patient agrees that it would be. I gladly provide prayer. Patient voices appreciation as she falls back to sleep. I will continue to attempt to establish therapeutic alliance.
--- NOTE | 2020-03-11 14:11 | NUR ---
TRANSFER TO MEDICAL REPORT GIVEN TO LUIS. PATIENT IS ALERT AND ORIENTED, ON 3L O2 NASAL CANNULA SATING ABOVE 90%. LUNGS ARE DIMINISHED. SOB WITH ACTIVITY. R FOREARM IV SALINE LOCKED. RESTING THROUGHOUT THE MORNING, WAKING FOR CARES. VITAL SIGNS STABLE. NO ACUTE CHANGES.
--- NOTE | 2020-03-11 14:30 | NUR ---
PT ARRIVED TO THE MEDICAL FLOOR FROM THE PCU A/OX3, PLEASANT AND COOPERATIVE, THE PT WAS ABLE TO TRANSFER FROM BED TO BED WITH MINIMAL ASSISTANCE, THE PT IS ON 3L/MIN O2, THE PT WAS ORIENTED TO THE ROOM LAYOUT AND CALL SYSTEM, PT HAS A VISITOR AT THE BEDSIDE, CALL LIGHT IN REACH, WILL CONTINUE TO MONITOR AND ASSESS FOR CHANGES
--- NOTE | 2020-03-11 18:04 | NUR ---
PT IS ALOX3, PLEASANT AND COOPERATIVE, THE PT IS UP IND IN HER ROOM, THE PT IS ON 3L/MIN O2 VIA NC, THE PT WAS MEDICATED FOR ANXIETY 2 TIMES TODAY SHE RQUESTED, THE PT APPEARS ANGELA BE COMFORTABLE IN BED AT GIS TIME, THE PT HAD A VISITOR EARLIER TODAY, PT WAS TRANSFERED FROM THEM PCU TODAY, POSSIBLE DC IN THE AM, CALL LIGHT IN REACH
--- NOTE | 2020-03-11 19:36 | NUR ---
ASSUMED CARE. NICOLAS ASKED IF SHE COULD GET HER TRAZADONE SOON POSSIBLE SO SHE COULD GET SOME SLEEP. REPORTS PAIN ON THE LEFT RIB CAGE AREA, STATES FROM COUGHING. NO BRUISES NOTED. LUNG SOUNDS ARE CLEAR, DIMINISHED IN BASES. ON 3 LITERS SATS IN 90'S WHICH IS HER BASE. VS WNL, AFEBRILE. NO NEEDS NOTED. CALL LIGHT IS IN REACH.
--- NOTE | 2020-03-12 05:25 | NUR ---
SHIFT SUMMARY: AOX3. ANXIOUS TO GO HOME TODAY. MILD PAIN IN THE LEFT RIB AREA FROM COUGHING. LS CLEAR WITH DIMINISHED IN BASES, ON 3 LITERS HER BASE. NO COUGH NOTED THIS SHIFT. SATS IN THE 90'S. VS WNL EXCCEPT HR IS TACHY 110'S. DENIES ANY CARDIAC SYMPTOMS. SLEPT WELL AFTER GETTING HER TRAZADONE. NO OTHER CHANGES TO REPORT THIS SHIFT. CALL LIGHT IS IN REACH.
[2020-03-12] MEDS ORDERED: CEPH500 PO (09:42)
[2020-03-12] MEDS ORDERED: AMOCLA875 PO (11:40)
[2020-03-12] MEDS ORDERED: AZIT500 PO (11:41)
--- NOTE | 2020-03-12 13:26 | NUR ---
PT DISCHARGED THE PT VERBALIZED UNDERSTANDING OF THE DC INSTRUCTIONS, PTS PRESCRIPTIONS WERE FAXED TO [facility] IN [place], THE PT WAS ON PORTABLE O2 AT THE TIME OF DC, THE PT WAS TRANSFERED VIA WHEELCHAIR ACCOMPANIED BY THE ESCORT AND THE PRINTING SERVICES COORDINATOR
== END 2020-03-12 13:22 | disposition home or self-care (01) | DRG 194 ==
LOC: ER 16:10 → PCU 16:11 → MEDS 03-11 14:19
PROVIDERS: Emergency Medicine; Hospitalist; Nurse Practitioner Acute Care; ADMIT Internal Medicine
DX: J18.9 Pneumonia, unspecified organism (principal); J44.0 Chronic obstructive pulmonary disease with (acute) lower respiratory infection; E44.0 Moderate protein-calorie malnutrition; Z68.1 Body mass index [BMI] 19.9 or less, adult; R64 Cachexia; I11.0 Hypertensive heart disease with heart failure; I50.810 Right heart failure, unspecified; I27.20 Pulmonary hypertension, unspecified; K21.9 Gastro-esophageal reflux disease without esophagitis; R79.89 Other specified abnormal findings of blood chemistry; F19.10 Other psychoactive substance abuse, uncomplicated; R07.81 Pleurodynia; F41.9 Anxiety disorder, unspecified; F32.9 Major depressive disorder, single episode, unspecified; F17.210 Nicotine dependence, cigarettes, uncomplicated; Z99.81 Dependence on supplemental oxygen
CPT/HCPCS: 36415; 71045; 71260; 80048; 80053; 83735; 83880; 84100; 84484; 85025; 85379; 93005; 93010; 93306; 94640; 94644; 94760; 94762; 96372; 96374; 96375; 97116; 97162; 99285-25; A9270; G0378; J0696; J1650; J1940; J2930; J7030; Q9967